=== PATIENT | male | born 1950 | race Hispanic/Latino ===

== ENCOUNTER 2020-03-29 22:09 | Observation (INO) | payer OTHER ==
--- NOTE | 2020-03-29 22:48 | Emergency Department Report ---
HPI - General Chief Complaint: Altered Mental Status Time Seen by Provider: 03/29/20 22:45 - HPI HPI: This is a 69-year-old male who presents to the emergency department via EMS for altered mental status. Apparently the patient was found wandering around somewhere that concerned someone and PD was notified. They found this patient altered and called for EMS for transfer to the emergency department. The patient is currently AAO x2 to person and place but not time. The patient is unknown to myself and has never been to this emergency department previously. He presents slightly disheveled. He says that he lives alone and does not have any significant other or family. Patient presents incontinent of urine. Patient does admit to a history of hypertension and previous CVA but denies any residual deficits. At this time the patient denies any chest pain, fever, shortness of breath, nausea, vomiting or diaphoresis. ED Past Medical Hx - Past Medical History Previous Medical History?: Yes Hx CVA: Yes - Social History Smoking Status: Never Smoker Substance Use Type: None ED Review of Systems ROS: Stated complaint: ALTERED MENTAL STATUS Other details as noted in HPI Comment: Unobtainable due to pts medical conditions Physical Exam - Physical Exam Physical Exam: GENERAL: The patient is well-developed well-nourished. HENT: Normocephalic. Atraumatic. Patient has moist mucous membranes. EYES: Extraocular motions are intact. NECK: Supple. Trachea is midline. Full range of motion. CHEST/LUNGS: Clear to auscultation. There is no respiratory distress noted. HEART/CARDIOVASCULAR: Regular. There is no tachycardia. ABDOMEN: Abdomen is soft, nontender. Patient has normal bowel sounds. SKIN: Skin is warm and dry. NEURO: The patient is awake, alert but confused. AAO x2 to person and place but not time. Cranial nerves II through XII grossly intact. MUSCULOSKELETAL: There is no tenderness or deformity. There is no limitation range of motion. BACK: No midline thoracic or lumbar tenderness to palpation. ED Course - Reevaluation(s) Reevaluation #1: 03/30/20 03:09 Lab Results 03/29/20 03/29/20 03/29/20 Range/Units 23:19 23:19 23:19 WBC 14.7 H (4.5-11.0) K/mm3 RBC 5.01 (3.65-5.03) M/mm3 Hgb 14.9 (11.8-15.2) gm/dl Hct 44.9 (35.5-45.6) % MCV 90 (84-94) fl MCH 30 (28-32) pg MCHC 33 (32-34) % RDW 14.8 (13.2-15.2) % Plt Count 368 (140-440) K/mm3 Lymph % (Auto) 10.4 L (13.4-35.0) % [place] % (Auto) 5.6 (0.0-7.3) % Eos % (Auto) 0.5 (0.0-4.3) % Baso % (Auto) 0.6 (0.0-1.8) % Lymph # (Auto) 1.5 (1.2-5.4) K/mm3 [place] # (Auto) 0.8 (0.0-0.8) K/mm3 Eos # (Auto) 0.1 (0.0-0.4) K/mm3 Baso # (Auto) 0.1 (0.0-0.1) K/mm3 Seg Neutrophils % 82.9 H (40.0-70.0) % Seg Neutrophils # 12.2 H (1.8-7.7) K/mm3 Sodium 138 (137-145) mmol/L Potassium 3.9 (3.6-5.0) mmol/L Chloride 100.1 (98-107) mmol/L Carbon Dioxide 21 L (22-30) mmol/L Anion Gap 21 mmol/L BUN 24 H (9-20) mg/dL Creatinine 1.0 (0.8-1.3) mg/dL Estimated GFR > 60 ml/min BUN/Creatinine Ratio 24 % Glucose 85 (75-100) mg/dL Calcium 9.3 (8.4-10.2) mg/dL Total Bilirubin 0.90 (0.1-1.2) mg/dL AST 22 (5-40) units/L ALT 11 (7-56) units/L Alkaline Phosphatase 125 (35-129) units/L Ammonia (25-60) umol/L Troponin T < 0.010 (0.00-0.029) ng/mL Total Protein 7.7 (6.3-8.2) g/dL Albumin 3.9 (3.9-5) g/dL Albumin/Globulin Ratio 1.0 % TSH (0.270-4.200) mlU/mL Urine Color (Yellow) Urine Turbidity (Clear) Urine pH (5.0-7.0) Ur Specific [place] (1.003-1.030) Urine Protein (Negative) mg/dL Urine Glucose (UA) (Negative) mg/dL Urine Ketones (Negative) mg/dL Urine Blood (Negative) Urine Nitrite (Negative) Urine Bilirubin (Negative) Urine Urobilinogen (<2.0) mg/dL Ur Leukocyte Esterase (Negative) Urine WBC (Auto) (0.0-6.0) /HPF Urine RBC (Auto) (0.0-6.0) /HPF U Epithel Cells (Auto) (0-13.0) /HPF Urine Bacteria (Auto) (Negative) /HPF Urine WBC Clumps /HPF Urine Mucus /HPF Urine Opiates Screen Urine Methadone Screen Ur Barbiturates Screen Ur Phencyclidine Scrn Ur Amphetamines Screen U Benzodiazepines Scrn Urine Cocaine Screen U Marijuana (THC) Screen Drugs of Abuse Note Plasma/Serum Alcohol < 0.01 (0-0.07) % 03/29/20 03/29/20 03/29/20 Range/Units 23:19 23:19 23:46 WBC (4.5-11.0) K/mm3 RBC (3.65-5.03) M/mm3 Hgb (11.8-15.2) gm/dl Hct (35.5-45.6) % MCV (84-94) fl MCH (28-32) pg MCHC (32-34) % RDW (13.2-15.2) % Plt Count (140-440) K/mm3 Lymph % (Auto) (13.4-35.0) % [place] % (Auto) (0.0-7.3) % Eos % (Auto) (0.0-4.3) % Baso % (Auto) (0.0-1.8) % Lymph # (Auto) (1.2-5.4) K/mm3 [place] # (Auto) (0.0-0.8) K/mm3 Eos # (Auto) (0.0-0.4) K/mm3 Baso # (Auto) (0.0-0.1) K/mm3 Seg Neutrophils % (40.0-70.0) % Seg Neutrophils # (1.8-7.7) K/mm3 Sodium (137-145) mmol/L Potassium (3.6-5.0) mmol/L Chloride (98-107) mmol/L Carbon Dioxide (22-30) mmol/L Anion Gap mmol/L BUN (9-20) mg/dL Creatinine (0.8-1.3) mg/dL Estimated GFR ml/min BUN/Creatinine Ratio % Glucose (75-100) mg/dL Calcium (8.4-10.2) mg/dL Total Bilirubin (0.1-1.2) mg/dL AST (5-40) units/L ALT (7-56) units/L Alkaline Phosphatase (35-129) units/L Ammonia 37.0 (25-60) umol/L Troponin T (0.00-0.029) ng/mL Total Protein (6.3-8.2) g/dL Albumin (3.9-5) g/dL Albumin/Globulin Ratio % TSH 1.230 (0.270-4.200) mlU/mL Urine Color Yellow (Yellow) Urine Turbidity Clear (Clear) Urine pH 5.0 (5.0-7.0) Ur Specific [place] 1.021 (1.003-1.030) Urine Protein <15 mg/dl (Negative) mg/dL Urine Glucose (UA) Neg (Negative) mg/dL Urine Ketones 20 (Negative) mg/dL Urine Blood Lg (Negative) Urine Nitrite Pos (Negative) Urine Bilirubin Neg (Negative) Urine Urobilinogen 2.0 (<2.0) mg/dL Ur Leukocyte Esterase Mod (Negative) Urine WBC (Auto) 24.0 H (0.0-6.0) /HPF Urine RBC (Auto) 1.0 (0.0-6.0) /HPF U Epithel Cells (Auto) < 1.0 (0-13.0) /HPF Urine Bacteria (Auto) 2+ (Negative) /HPF Urine WBC Clumps 2+ /HPF Urine Mucus 2+ /HPF Urine Opiates Screen Urine Methadone Screen Ur Barbiturates Screen Ur Phencyclidine Scrn Ur Amphetamines Screen U Benzodiazepines Scrn Urine Cocaine Screen U Marijuana (THC) Screen Drugs of Abuse Note Plasma/Serum Alcohol (0-0.07) % 12/06/20 Range/Units 23:46 WBC (4.5-11.0) K/mm3 RBC (3.65-5.03) M/mm3 Hgb (11.8-15.2) gm/dl Hct (35.5-45.6) % MCV (84-94) fl MCH (28-32) pg MCHC (32-34) % RDW (13.2-15.2) % Plt Count (140-440) K/mm3 Lymph % (Auto) (13.4-35.0) % [place] % (Auto) (0.0-7.3) % Eos % (Auto) (0.0-4.3) % Baso % (Auto) (0.0-1.8) % Lymph # (Auto) (1.2-5.4) K/mm3 [place] # (Auto) (0.0-0.8) K/mm3 Eos # (Auto) (0.0-0.4) K/mm3 Baso # (Auto) (0.0-0.1) K/mm3 Seg Neutrophils % (40.0-70.0) % Seg Neutrophils # (1.8-7.7) K/mm3 Sodium (137-145) mmol/L Potassium (3.6-5.0) mmol/L Chloride (98-107) mmol/L Carbon Dioxide (22-30) mmol/L Anion Gap mmol/L BUN (9-20) mg/dL Creatinine (0.8-1.3) mg/dL Estimated GFR ml/min BUN/Creatinine Ratio % Glucose (75-100) mg/dL Calcium (8.4-10.2) mg/dL Total Bilirubin (0.1-1.2) mg/dL AST (5-40) units/L ALT (7-56) units/L Alkaline Phosphatase (35-129) units/L Ammonia (25-60) umol/L Troponin T (0.00-0.029) ng/mL Total Protein (6.3-8.2) g/dL Albumin (3.9-5) g/dL Albumin/Globulin Ratio % TSH (0.270-4.200) mlU/mL Urine Color (Yellow) Urine Turbidity (Clear) Urine pH (5.0-7.0) Ur Specific [place] (1.003-1.030) Urine Protein (Negative) mg/dL Urine Glucose (UA) (Negative) mg/dL Urine Ketones (Negative) mg/dL Urine Blood (Negative) Urine Nitrite (Negative) Urine Bilirubin (Negative) Urine Urobilinogen (<2.0) mg/dL Ur Leukocyte Esterase (Negative) Urine WBC (Auto) (0.0-6.0) /HPF Urine RBC (Auto) (0.0-6.0) /HPF U Epithel Cells (Auto) (0-13.0) /HPF Urine Bacteria (Auto) (Negative) /HPF Urine WBC Clumps /HPF Urine Mucus /HPF Urine Opiates Screen Presumptive negative Urine Methadone Screen Presumptive negative Ur Barbiturates Screen Presumptive negative Ur Phencyclidine Scrn Presumptive negative Ur Amphetamines Screen Presumptive positive U Benzodiazepines Scrn Presumptive negative Urine Cocaine Screen Presumptive negative U Marijuana (THC) Screen Presumptive negative Drugs of Abuse Note Disclamer Plasma/Serum Alcohol (0-0.07) % ED Medical Decision Making - Lab Data Result diagrams: 03/29/20 23:19 03/29/20 23:19 - EKG Data -: EKG Interpreted by Me EKG shows normal: sinus rhythm, axis, intervals (Prolonged VT interval), QRS complexes (LVH), ST-T waves Rate: normal - EKG Data When compared to previous EKG there are: previous EKG unavailable Interpretation: other (Sinus rhythm, normal axis, prolonged VT interval, LVH. No ST elevation myocardial infarction.) - Radiology Data Radiology results: report reviewed, image reviewed interpreted by me: Chest x-ray does not show any acute process. There are no pleural effusions, obvious pneumonia and there is no pneumothorax. No significant cardiomegaly. CT head/brain wo con INDICATION: Altered mental status. TECHNIQUE: Routine CT head without contrast. All CT scans at this location are performed using CT dose reduction for ALARA by means of automated exposure control. COMPARISON: None. FINDINGS: BRAIN / INTRACRANIAL CONTENTS: No acute hemorrhage, mass effect, midline shift, or hydrocephalus. No appreciable acute large territorial or lacunar infarct. Several chronic lacunar infarcts noted in the basal ganglia and steel radiata. Age-commensurate ventricular and cisternal/sulcal prominence. ORBITS: No significant abnormality of visualized orbits. SINUSES / MASTOIDS: No significant abnormality of visualized sinuses and mastoid air cells. ADDITIONAL FINDINGS: None. IMPRESSION: 1. No acute intracranial abnormality on noncontrast CT of the brain. Chronic changes as above. - Medical Decision Making This patient presents to the emergency department with altered mental status after he was found either wandering or loitering somewhere this evening. He was initially seen by PD and brought in by EMS. Patient is AAO x2 to person and place but not time. He has a disheveled appearance. Cranial nerves are intact. He appears to have full range of motion of all of his extremities. I did not see any particular focal or lateralizing deficits on examination. CT scan of the head without contrast does not show any bleed, shift, mass, ischemia, or any other acute process. There are some remote infarct seen. Chest x-ray does not show any pneumonia, pleural effusions, pneumothorax, or any other acute process. It was read by radiology as showing age-indeterminate left-sided lower rib fractures. However the patient does not have any tenderness to palpation in this area and denies any recent fall or trauma. There are no areas of ecchymosis, crepitus. Patient's labs shows a leukocytosis of 14,000, mild urinary tract infection, and urine drug screen positive for amphetamines. Patient will be admitted to the hospital for further evaluation and treatment was accepted for admission by the hospitalist, Dr. Oliver. Critical Care Time: No Critical care attestation.: If time is entered above; I have spent that time in minutes in the direct care of this critically ill patient, excluding procedure time. ED Disposition Clinical Impression: Encephalopathy acute UTI (urinary tract infection) Qualifiers: Urinary tract infection type: acute cystitis Hematuria presence: without hematuria Qualified Code(s): N30.00 - Acute cystitis without hematuria Hypertension Qualifiers: Hypertension type: essential hypertension Qualified Code(s): I10 - Essential (primary) hypertension Disposition: OP ADMIT IP TO THIS HOSP Is pt being admited?: Yes Condition: Serious Time of Disposition: 01:30
--- NOTE | 2020-03-29 23:05 | XRay Report ---
CHEST 1 VIEW INDICATION / CLINICAL INFORMATION: Altered mental status. COMPARISON: None available. FINDINGS: SUPPORT DEVICES: None. HEART / MEDIASTINUM: No significant abnormality. LUNGS / PLEURA: No significant pulmonary or pleural abnormality. No pneumothorax. ADDITIONAL FINDINGS: Several age indeterminate left lateral lower rib fractures. IMPRESSION: 1. Several age-indeterminate left lateral lower rib fractures, correlate for history of trauma. 2. Otherwise no acute abnormality identified. Signer Name: Verito Arreola MD Signed: 03/29/2020 11:00 PM Workstation Name: [id number]
--- NOTE | 2020-03-29 23:27 | Cat Scan Report ---
CT head/brain wo con INDICATION: Altered mental status. TECHNIQUE: Routine CT head without contrast. All CT scans at this location are performed using CT dos e reduction for ALARA by means of automated exposure control. COMPARISON: None. FINDINGS: BRAIN / INTRACRANIAL CONTENTS: No acute hemorrhage, mass effect, midline shift, or hydrocephalus. No appreciable acute large territorial or lacunar infarct. Several chronic lacunar infarcts noted in the basal ganglia and steel radiata. Age-commensurate ventricular and cisternal/sulcal prominence. ORBITS: No significant abnormality of visualized orbits. SINUSES / MASTOIDS: No significant abnormality of visualized sinuses and mastoid air cells. ADDITIONAL FINDINGS: None. IMPRESSION: 1. No acute intracranial abnormality on noncontrast CT of the brain. Chronic changes as above. Signer Name: Verito Arreola MD Signed: 03/29/2020 11:23 PM Workstation Name: [id number]
[2020-03-29 23:52] LABS: Basophils # (Auto) 0.1 K/mm3 (0.0-0.1); Basophils % (Auto) 0.6 % (0.0-1.8); Eosinophils # (Auto) 0.1 K/mm3 (0.0-0.4); Eosinophils % (Auto) 0.5 % (0.0-4.3); Hematocrit 44.9 % (35.5-45.6); Hemoglobin 14.9 gm/dl (11.8-15.2); Lymphocytes # (Auto) 1.5 K/mm3 (1.2-5.4); Lymphocytes % (Auto) 10.4 % (13.4-35.0); Mean Corpuscular HGB Conc 33 % (32-34); Mean Corpuscular Volume 90 fl (84-94); Monocytes # (Auto) 0.8 K/mm3 (0.0-0.8); Monocytes % (Auto) 5.6 % (0.0-7.3); Platelet Count 368 K/mm3 (140-440); Red Blood Count 5.01 M/mm3 (3.65-5.03); Red Cell Distribution Width 14.8 % (13.2-15.2)
[2020-03-30 00:42] LABS: Alanine Aminotransferase 11 units/L (7-56); Albumin 3.9 g/dL (3.9-5); BUN/Creatinine Ratio 24; Blood Urea Nitrogen 24 mg/dL (9-20); Calcium 9.3 mg/dL (8.4-10.2); Hemolysis Index 95
[2020-03-30 01:19] LABS: Bacteria,Urine 2+ /HPF (Negative); Bilirubin,Urine NEG (Negative); Blood,Urine LG (Negative); Color,Urine Yellow (Yellow); Mucus,Urine 2+ /HPF; Protein,Urine <15 mg/dL mg/dL (Negative)
[2020-03-30] MEDS ORDERED: cefTRIAXone/NS 1 GM/50 ML 1 GM/50 ML BAG IV ONE ×2 (01:25→03:16)
[2020-03-30 01:27] LABS: Amphetamine Screen,Urine PRESUMPTIVE POSITIVE; Benzodiazepines Screen,Urine PRESUMPTIVE NEGATIVE; Cannabinoid Screen,Urine PRESUMPTIVE NEGATIVE; Cocaine Screen,Urine PRESUMPTIVE NEGATIVE; Methadone Screen,Urine PRESUMPTIVE NEGATIVE; Opiate Screen,Urine PRESUMPTIVE NEGATIVE
[2020-03-30] MEDS ORDERED: ACETAMINOPHEN 325 MG TAB PO PRN (01:43)
[2020-03-30] MEDS ORDERED: ONDANSETRON 4 MG/2 ML INJ IV PRN (01:43)
[2020-03-30] MEDS ORDERED: SENNOSIDES 8.6 MG TAB PO PRN (01:43)
[2020-03-30] MEDS ORDERED: ZOLPIDEM 5 MG TAB PO PRN (01:43)
[2020-03-30] MEDS ORDERED: ALUM-MAG HYDROXIDE-SIMETHICONE 200-200-20MG/5ML ORAL LIQD 30 ML PO PRN (01:43)
[2020-03-30] MEDS ORDERED: METOCLOPRAMIDE 10 MG/2 ML INJ IV PRN (01:43)
[2020-03-30] MEDS ORDERED: SODIUM CHLORIDE 0.9% 1000 ML 1,000 ML IV SCH (01:45)
--- NOTE | 2020-03-30 01:56 | History and Physical Report ---
History of Present Illness Date of examination: 03/30/20 Date of admission: 03/30/20 Chief complaint: Altered mental Status UTI History of present illness: This is a 69-year-old male seen at bedside in Ed. Patient on room air, oxygen saturation 99%. He is confused and restless with agitation. He presents to the emergency department via EMS for altered mental status. Per ED record- patient was found wandering around somewhere that concerned someone and PD was notified. They found this patient altered and called for EMS for transfer to the emergency department. The patient is alert and oriented times 2. He says that he lives alone and does not have any significant other or family. Patient appears unkept and incontinent of urine. Patient has past medical history hypertension and CVA with no residual deficits. Patient denies chest pain, fever, shortness of breath, nausea, and vomiting. ED work up shows WBC 14.7, hemoglobin 14.9, sodium 138, urinalysis positive 24 Ct of the head -negative for acute finding Chest x-ray-no acute finding Past History Past Medical History: hypertension, stroke Past Surgical History: No surgical history Social history: no significant social history Family history: no significant family history Medications and Allergies Allergies Allergy/AdvReac Type Severity Reaction Status Date / Time Unable to Assess Allergy Unverified 03/29/20 22:39 Active Meds: Active Medications Acetaminophen (Tylenol) 650 mg PO Q4H PRN PRN Reason: Pain MILD(1-3)/Fever >100.5/BOWER Al Hydrox/Mg Hydrox/Simethicone (Alum-Mag Hydrox-Simeth [id number]) 30 ml PO Q4H PRN PRN Reason: Indigestion Famotidine (Pepcid) 20 mg PO DAILY LANDON Ceftriaxone Sodium (Rocephin/Ns 1 Gm/50 Ml) 1 gm in 50 mls @ 100 mls/hr IV ONCE ONE; Protocol Stop: 03/30/20 01:54 Sodium Chloride (Nacl 0.9% 1000 Ml) 1,000 mls @ 75 mls/hr IV DIRECT LANDON Metoclopramide HCl (Reglan) 10 mg IV Q6H PRN PRN Reason: Nausea And Vomiting Ondansetron HCl (Zofran) 4 mg IV Q8H PRN PRN Reason: Nausea And Vomiting Senna (Senokot) 8.6 mg PO Q12HR PRN PRN Reason: Constipation Sodium Chloride (Sodium Chloride Flush Syringe 10 Ml) 10 ml IV BID LANDON Sodium Chloride (Sodium Chloride Flush Syringe 10 Ml) 10 ml IV PRN PRN PRN Reason: LINE FLUSH Zolpidem Tartrate (Ambien) 5 mg PO QHS PRN PRN Reason: Insomnia Review of Systems Constitutional: weakness Ears, nose, mouth and throat: no ear discharge, no epistaxis Cardiovascular: no orthopnea, no shortness of breath Respiratory: no shortness of breath Gastrointestinal: no hematemesis Genitourinary Male: urinary frequency, urinary hesitancy, incontinence Musculoskeletal: no fractures Integumentary: no rash, no redness Neurological: confusion Psychiatric: anxiety, confusion Endocrine: no thyroid mass Exam - Constitutional Vitals: Temp Pulse Resp BP Pulse Ox 98.5 F 87 22 176/97 98 03/29/20 23:11 03/29/20 23:11 03/29/20 23:11 03/29/20 23:11 03/29/20 23:11 General appearance: Present: no acute distress - EENT Eyes: Present: PERRL ENT: hearing intact, clear oral mucosa - Neck Neck: Present: supple, normal ROM - Respiratory Respiratory effort: normal Respiratory: bilateral: CTA - Cardiovascular Heart rate: 87 Heart Sounds: Present: S1 & S2. Absent: rub, click - Extremities Extremities: pulses symmetrical, No edema Peripheral Pulses: within normal limits - Abdominal General gastrointestinal: Present: soft, non-tender, non-distended, normal bowel sounds Male genitourinary: Present: normal - Integumentary Integumentary: Present: clear, warm, dry - Musculoskeletal Musculoskeletal: gait normal, strength equal bilaterally - Psychiatric Psychiatric: other (Altered mental status) - Neurologic Neurologic: CNII-XII intact, moves all extremities - Allied Health Allied health notes reviewed: nursing HEART Score - HEART Score Troponin: Troponin T < 0.010 ng/mL (0.00-0.029) 03/29/20 23:19 Results - Labs CBC & Chem 7: 03/29/20 23:19 03/29/20 23:19 Labs: Abnormal lab results 03/29/20 03/29/20 03/29/20 Range/Units 23:19 23:19 23:46 WBC 14.7 H (4.5-11.0) K/mm3 Lymph % (Auto) 10.4 L (13.4-35.0) % Seg Neutrophils % 82.9 H (40.0-70.0) % Seg Neutrophils # 12.2 H (1.8-7.7) K/mm3 Carbon Dioxide 21 L (22-30) mmol/L BUN 24 H (9-20) mg/dL Urine WBC (Auto) 24.0 H (0.0-6.0) /HPF Assessment and Plan - Patient Problems (1) Encephalopathy acute Current Visit: Yes Status: Acute Plan to address problem: Most likely 2/2 to UTI Continue empiric antibiotic-iv Rocephin Monitor mental status Safety and fall precaution at all time CT of the head-negative for acute finding (2) UTI (urinary tract infection) Current Visit: Yes Status: Acute Qualifiers: Urinary tract infection type: acute cystitis Hematuria presence: without hematuria Qualified Code(s): N30.00 - Acute cystitis without hematuria Plan to address problem: Continue antibiotics Urine and blood culture-f/u with result (3) Hypertension Current Visit: Yes Status: Acute Qualifiers: Hypertension type: essential hypertension Qualified Code(s): I10 - Essential (primary) hypertension Plan to address problem: Monitor blood pressure Will resume home bp med+ Adjust bp med if needed Chest x-ray -negative for acute finding (4) Leucocytosis Current Visit: Yes Status: Acute Plan to address problem: likely 2/2 to UTI monitor WBC Blood culture and urine culture (5) DVT prophylaxis Current Visit: Yes Status: Acute Plan to address problem: SQ lovenox
[2020-03-30] MEDS ORDERED: hydrALAZINE 20 MG/1 ML INJ IV PRN (02:05)
[2020-03-30] MEDS ORDERED: QUEtiapine 25 MG TAB PO ONE (02:14)
[2020-03-30] MEDS ORDERED: traMADol 50 MG TAB PO PRN (02:14)
[2020-03-30 06:55] LABS: Chol/HDL Ratio 4.8 %
[2020-03-30] MEDS: FAMOTIDINE 20 MG TAB PO SCH (09:49)
[2020-03-30] MEDS: ENOXAPARIN 40 MG/0.4 ML INJ SUB-Q SCH (09:49)
[2020-03-30] MEDS: amLODIPine 5 MG TAB PO SCH (09:50)
[2020-03-30] MEDS: D5W/0.9% NACL 1,000 ML IV SCH ×2 (11:24→23:46)
--- NOTE | 2020-03-30 16:24 | Progress Note ---
Assessment and Plan - Patient Problems (1) UTI (urinary tract infection) Current Visit: Yes Status: Acute Qualifiers: Urinary tract infection type: acute cystitis Hematuria presence: without hematuria Qualified Code(s): N30.00 - Acute cystitis without hematuria Plan to address problem: 03/29 urine analysis shows leukocyte esterase and nitrate IV Rocephin Supportive care Trend CBC (2) Encephalopathy acute Current Visit: Yes Status: Acute Plan to address problem: Presented with confusion Supportive care Likely secondary to UTI Aspiration/fall precautions 03/29 CT of the head negative for acute finding (3) Leucocytosis Current Visit: Yes Status: Acute Plan to address problem: Presented with WBC of 14.7 Trend CBC Antibiotic therapy (4) Hypertension Current Visit: Yes Status: Chronic Qualifiers: Hypertension type: essential hypertension Qualified Code(s): I10 - Essential (primary) hypertension Plan to address problem: Resume home antihypertensive regimen As needed hydralazine for SBP greater than 160 Pressure monitoring per protocol (5) DVT prophylaxis Current Visit: Yes Status: Acute Plan to address problem: SCDs to bilateral from swelling by Lovenox subcu GI prophylaxis History Interval history: This is a 69-year-old male with hypertension and stroke who presents the emergency department on 03/29 via EMS for altered mental status. Per ED records patient was found wandering and PD was notified who found the patient was altered and called EMS for transfer to the ED. To the ED he is uncapped and incontinent of urine head CT and CXR was negative for any acute changes. In the emergency department she was found to have leukocytosis of 14.7, urinalysis was positive for leukocyte Estrace, pyuria and nitrates. Patient was admitted to the hospital service with a urinary tract infection and acute metabolic encephalopathy. This morning on examination patient does not open his eyes to verbal stimuli but is responsive to painful stimuli. He was hypoglycemic today therefore he was started on D5 normal saline. Hospitalist Physical - Constitutional Vitals: Temp Pulse Resp BP Pulse Ox 98.9 F 81 16 134/69 93 03/30/20 12:03 03/30/20 12:03 03/30/20 12:03 03/30/20 12:03 03/30/20 12:03 General appearance: Present: no acute distress - EENT Eyes: Present: PERRL, EOM intact ENT: poor dentition - Neck Neck: Present: normal ROM - Respiratory Respiratory effort: normal Respiratory: bilateral: CTA - Cardiovascular Rhythm: regular Heart Sounds: Present: S1 & S2. Absent: systolic murmur, diastolic murmur - Extremities Extremities: no ischemia, pulses intact, pulses symmetrical, No edema, normal temperature, normal color, Full ROM Peripheral Pulses: within normal limits - Abdominal General gastrointestinal: soft, non-tender, non-distended, normal bowel sounds - Integumentary Integumentary: Present: warm, dry - Psychiatric Psychiatric: other (Noninteractive) - Neurologic Neurologic: CNII-XII intact, no focal deficits, moves all extremities HEART Score - HEART Score Troponin: Troponin T < 0.010 ng/mL (0.00-0.029) 03/29/20 23:19 Results - Labs CBC & Chem 7: 03/29/20 23:19 03/29/20 23:19 Labs: Laboratory Last Values WBC 14.7 K/mm3 (4.5-11.0) H 03/29/20 23:19 RBC 5.01 M/mm3 (3.65-5.03) 03/29/20 23:19 Hgb 14.9 gm/dl (11.8-15.2) 03/29/20 23:19 Hct 44.9 % (35.5-45.6) 03/29/20 23:19 MCV 90 fl (84-94) 03/29/20 23:19 MCH 30 pg (28-32) 03/29/20 23:19 MCHC 33 % (32-34) 03/29/20 23:19 RDW 14.8 % (13.2-15.2) 03/29/20 23:19 Plt Count 368 K/mm3 (140-440) 03/29/20 23:19 Lymph % (Auto) 10.4 % (13.4-35.0) L 03/29/20 23:19 [place] % (Auto) 5.6 % (0.0-7.3) 03/29/20 23:19 Eos % (Auto) 0.5 % (0.0-4.3) 03/29/20 23:19 Baso % (Auto) 0.6 % (0.0-1.8) 03/29/20 23:19 Lymph # (Auto) 1.5 K/mm3 (1.2-5.4) 03/29/20 23:19 [place] # (Auto) 0.8 K/mm3 (0.0-0.8) 03/29/20 23:19 Eos # (Auto) 0.1 K/mm3 (0.0-0.4) 03/29/20 23:19 Baso # (Auto) 0.1 K/mm3 (0.0-0.1) 03/29/20 23:19 Seg Neutrophils % 82.9 % (40.0-70.0) H 03/29/20 23:19 Seg Neutrophils # 12.2 K/mm3 (1.8-7.7) H 03/29/20 23:19 Sodium 138 mmol/L (137-145) 03/29/20 23:19 Potassium 3.9 mmol/L (3.6-5.0) 03/29/20 23:19 Chloride 100.1 mmol/L (98-107) 03/29/20 23:19 Carbon Dioxide 21 mmol/L (22-30) L 03/29/20 23:19 Anion Gap 21 mmol/L 03/29/20 23:19 BUN 24 mg/dL (9-20) H 03/29/20 23:19 Creatinine 1.0 mg/dL (0.8-1.3) 03/29/20 23:19 Estimated GFR > 60 ml/min 03/29/20 23:19 BUN/Creatinine Ratio 24 % 03/29/20 23:19 Glucose 85 mg/dL (75-100) 03/29/20 23:19 POC Glucose 80 mg/dL (70-105) 03/30/20 12:01 Hemoglobin A1c 5.7 % (4-6) 03/30/20 01:47 Calcium 9.3 mg/dL (8.4-10.2) 03/29/20 23:19 Total Bilirubin 0.90 mg/dL (0.1-1.2) 03/29/20 23:19 AST 22 units/L (5-40) 03/29/20 23:19 ALT 11 units/L (7-56) 03/29/20 23:19 Alkaline Phosphatase 125 units/L (35-129) 03/29/20 23:19 Ammonia 37.0 umol/L (25-60) 03/29/20 23:19 Troponin T < 0.010 ng/mL (0.00-0.029) 03/29/20 23:19 Total Protein 7.7 g/dL (6.3-8.2) 03/29/20 23:19 Albumin 3.9 g/dL (3.9-5) 03/29/20 23:19 Albumin/Globulin Ratio 1.0 % 03/29/20 23:19 Triglycerides 93 mg/dL (2-149) 03/30/20 01:47 Cholesterol 202 mg/dL (50-199) H 03/30/20 01:47 LDL Cholesterol Direct 140 mg/dL (50-130) H 03/30/20 01:47 HDL Cholesterol 42 mg/dL (40-59) 03/30/20 01:47 Cholesterol/HDL Ratio 4.80 % 03/30/20 01:47 TSH 1.230 mlU/mL (0.270-4.200) 03/29/20 23:19 Urine Color Yellow (Yellow) 03/29/20 23:46 Urine Turbidity Clear (Clear) 03/29/20 23:46 Urine pH 5.0 (5.0-7.0) 03/29/20 23:46 Ur Specific [place] 1.021 (1.003-1.030) 03/29/20 23:46 Urine Protein <15 mg/dl mg/dL (Negative) 03/29/20 23:46 Urine Glucose (UA) Neg mg/dL (Negative) 03/29/20 23:46 Urine Ketones 20 mg/dL (Negative) 03/29/20 23:46 Urine Blood Lg (Negative) 03/29/20 23:46 Urine Nitrite Pos (Negative) 03/29/20 23:46 Urine Bilirubin Neg (Negative) 03/29/20 23:46 Urine Urobilinogen 2.0 mg/dL (<2.0) 03/29/20 23:46 Ur Leukocyte Esterase Mod (Negative) 03/29/20 23:46 Urine WBC (Auto) 24.0 /HPF (0.0-6.0) H 03/29/20 23:46 Urine RBC (Auto) 1.0 /HPF (0.0-6.0) 03/29/20 23:46 U Epithel Cells (Auto) < 1.0 /HPF (0-13.0) 03/29/20 23:46 Urine Bacteria (Auto) 2+ /HPF (Negative) 03/29/20 23:46 Urine WBC Clumps 2+ /HPF 03/29/20 23:46 Urine Mucus 2+ /HPF 03/29/20 23:46 Urine Opiates Screen Presumptive negative 03/29/20 23:46 Urine Methadone Screen Presumptive negative 03/29/20 23:46 Ur Barbiturates Screen Presumptive negative 03/29/20 23:46 Ur Phencyclidine Scrn Presumptive negative 03/29/20 23:46 Ur Amphetamines Screen Presumptive positive 03/29/20 23:46 U Benzodiazepines Scrn Presumptive negative 03/29/20 23:46 Urine Cocaine Screen Presumptive negative 03/29/20 23:46 U Marijuana (THC) Screen Presumptive negative 03/29/20 23:46 Drugs of Abuse Note Disclamer 03/29/20 23:46 Plasma/Serum Alcohol < 0.01 % (0-0.07) 03/29/20 23:19 Bates/IV: Voiding Method Incontinent IV Catheter Type [Right INT / Saline Lock Antecubital] Active Medications - Current Medications Current Medications: Generic Name Dose Route Start Last Admin Trade Name Freq PRN Reason Stop Dose Admin Acetaminophen 650 mg 03/30/20 01:43 Tylenol PO Q4H PRN Pain MILD(1-3)/Fever >100.5/BOWER Al Hydrox/Mg Hydrox/Simethicone 30 ml 03/30/20 01:43 Alum-Mag Hydrox-Simeth 934-057-64ru/5ml PO Q4H PRN Indigestion Amlodipine Besylate 5 mg 03/30/20 10:00 03/30/20 09:50 Amlodipine PO Not Given DAILY LANDON Enoxaparin Sodium 40 mg 03/30/20 10:00 03/30/20 09:49 Enoxaparin SUB-Q 40 mg QDAY LANDON Administration Protocol Famotidine 20 mg 03/30/20 10:00 03/30/20 09:49 Pepcid PO 20 mg DAILY LANDON Administration Hydralazine HCl 5 mg 03/30/20 02:05 Apresoline IV Q4HR PRN Hypertension Sodium Chloride 1,000 mls @ 75 mls/hr 03/30/20 01:45 03/30/20 09:50 Nacl 0.9% 1000 Ml IV 75 mls/hr DIRECT LANDON Administration Dextrose/Sodium Chloride 1,000 mls @ 75 mls/hr 03/30/20 10:00 03/30/20 11:24 D5ns IV 75 mls/hr DIRECT LANDON Administration Metoclopramide HCl 10 mg 03/30/20 01:43 Reglan IV Q6H PRN Nausea And Vomiting Ondansetron HCl 4 mg 03/30/20 01:43 Zofran IV Q8H PRN Nausea And Vomiting Senna 8.6 mg 03/30/20 01:43 Senokot PO Q12HR PRN Constipation Sodium Chloride 10 ml 03/30/20 10:00 03/30/20 09:50 Sodium Chloride Flush Syringe 10 Ml IV 10 ml BID LANDON Administration Sodium Chloride 10 ml 03/30/20 01:43 Sodium Chloride Flush Syringe 10 Ml IV PRN PRN LINE FLUSH Tramadol HCl 50 mg 03/30/20 02:14 03/30/20 02:21 Ultram PO 50 mg Q6HR PRN Administration Pain, Moderate (4-6) Zolpidem Tartrate 5 mg 03/30/20 01:43 Ambien PO QHS PRN Insomnia
[2020-03-30] MEDS ORDERED: cefTRIAXone/NS 1 GM/50 ML 1 GM/50 ML BAG IV SCH (22:00)
[2020-03-31 05:51] LABS: Basophils # (Auto) 0.1 K/mm3 (0.0-0.1); Basophils % (Auto) 0.7 % (0.0-1.8); Eosinophils # (Auto) 0.4 K/mm3 (0.0-0.4); Eosinophils % (Auto) 5.1 % (0.0-4.3); Hematocrit 39.5 % (35.5-45.6); Hemoglobin 13.2 gm/dl (11.8-15.2); Lymphocytes # (Auto) 1.7 K/mm3 (1.2-5.4); Lymphocytes % (Auto) 19.6 % (13.4-35.0); Mean Corpuscular HGB Conc 34 % (32-34); Mean Corpuscular Volume 91 fl (84-94); Monocytes # (Auto) 0.6 K/mm3 (0.0-0.8); Monocytes % (Auto) 6.9 % (0.0-7.3); Platelet Count 301 K/mm3 (140-440); Red Blood Count 4.35 M/mm3 (3.65-5.03); Red Cell Distribution Width 14.9 % (13.2-15.2)
[2020-03-31 06:19] LABS: Alanine Aminotransferase 32 units/L (7-56); Albumin 3.1 g/dL (3.9-5); BUN/Creatinine Ratio 19; Blood Urea Nitrogen 15 mg/dL (9-20); Calcium 8.3 mg/dL (8.4-10.2); Hemolysis Index 6
--- NOTE | 2020-03-31 09:12 | Discharge Summary ---
Providers - Providers Date of Admission: 03/30/20 01:30 Attending physician: EMILIO WEINER MD 03/30/20 18:22 Speech Therapy Evaluation and Treat [CONS] Routine Reason For Exam: swallow evaluation 03/31/20 09:11 Consult to Case Management [CONS] Routine Services Needed at Discharge: Matchbook Assembler Notified:: NO Additional Physician Instructions: HALFWAY Primary care physician: CLERK MANAGER Hospitalization Reason for admission: Altered mental status Condition: Serious Hospital course: This is a 69-year-old male seen at bedside in Ed. Patient on room air, oxygen saturation 99%. He is confused and restless with agitation. He presents to the emergency department via EMS for altered mental status. Per ED record- patient was found wandering around somewhere that concerned someone and PD was notified. They found this patient altered and called for EMS for transfer to the emergency department. The patient is alert and oriented times 2. He says that he lives alone and does not have any significant other or family. Patient appears unkept and incontinent of urine. Patient has past medical history hypertension and CVA with no residual deficits. Patient denies chest pain, fever, shortness of breath, nausea, and vomiting. ED work up shows WBC 14.7, hemoglobin 14.9, sodium 138, urinalysis positive 24 Ct of the head -negative for acute finding Chest x-ray-no acute finding During course of hospitalization imaging studies have remained unremarkable. Patient is awake this morning tells me he is from [place]. Could not explain why he has amphetamines in his urine I believe that this is likely the cause of his altered mental status. He is able to correctly identify who the president is and answer a few questions that informs me that his mental status is not intact. We will complete his treatment for antibiotics for UTI and we will also obtain case management to assist with placement likely to [facility]pc. Acute metabolic encephalopathy likely secondary to amphetamines Acute cystitis Leukocytosis likely reactive Systemic inflammatory response syndrome without organ dysfunction No evidence of sepsis Presumed homeless Disposition: DC- TO HOME OR SELFCARE Time spent for discharge: 35 minutes Core Measure Documentation - Palliative Care Palliative Care/ Comfort Measures: Not Applicable - Core Measures Any of the following diagnoses?: none Exam - Physical Exam Narrative exam: VITAL SIGNS: Reviewed. GENERAL: The patient appears normally appears older than stated age he otherwise developed, Vital signs as documented. HEAD: No signs of head trauma. EYES: Pupils are equal. Extraocular motions intact. EARS: Hearing grossly intact. MOUTH: Oropharynx is normal. NECK: No adenopathy, no JVD. CHEST: Chest with clear breath sounds bilaterally. No wheezes, rales, or rhonchi. CARDIAC: Regular rate and rhythm. S1 and S2, without murmurs, gallops, or rubs. VASCULAR: No Edema. Peripheral pulses normal and equal in all extremities. ABDOMEN: Soft, non tender and non distended. No rebound or guarding, and no masses palpated. Bowel Sounds normal. MUSCULOSKELETAL: Good range of motion of all major joints. Extremities without clubbing, cyanosis or edema. NEUROLOGIC EXAM: Alert and oriented x 3 No focal sensory or strength deficits. Speech normal. Follows commands. PSYCHIATRIC: Mood normal. SKIN: detail exam as documented in skin assessment - Constitutional Vitals: Temp Pulse Resp BP Pulse Ox 98.7 F 70 18 134/59 96 03/31/20 04:34 03/31/20 04:34 03/31/20 04:34 03/31/20 04:34 03/31/20 04:34 Plan Activity: advance as tolerated, fall precautions Diet: low fat Special Instructions: record daily weights, record daily BP diary, smoking cessation, other (Stop all illicit drug use) Follow up with: PRIMARY CARE, [Primary Care Provider] - 7 Days Prescriptions: AtorvaSTATin [Lipitor] 40 mg PO QHS #30 tablet amLODIPine 5 mg PO DAILY #30 tablet cephALEXin [Keflex] 500 mg PO Q12HR #10 cap Famotidine [Pepcid] 20 mg PO DAILY #30 tablet
[2020-03-31 09:39] VITALS: BP 134/79
[2020-03-31] MEDS: ENOXAPARIN 40 MG/0.4 ML INJ SUB-Q SCH (10:19)
[2020-03-31] MEDS: amLODIPine 5 MG TAB PO SCH (10:19)
[2020-03-31] MEDS: FAMOTIDINE 20 MG TAB PO SCH (10:20)
[2020-03-31] MEDS: POTASSIUM CHLORIDE 10 MEQ 10 MEQ/100 ML BAG IV SCH ×2 (10:23→11:46)
== END 2020-03-31 15:48 | disposition home or self-care (01) ==
LOC: ED 22:09 → 3A 03-30 01:30 → 4A 03-30 02:28
PROVIDERS: ADMIT Internal Medicine Geriatric Medicine; ATTEND Internal Medicine
DX: G93.41 Metabolic encephalopathy (principal); R41.82 Altered mental status, unspecified; N30.00 Acute cystitis without hematuria; I10 Essential (primary) hypertension; D72.829 Elevated white blood cell count, unspecified; R65.10 Systemic inflammatory response syndrome (SIRS) of non-infectious origin without acute organ dysfunction; Z86.73 Personal history of transient ischemic attack (TIA), and cerebral infarction without residual deficits; Z79.899 Other long term (current) drug therapy
CPT/HCPCS: 36415; 70450; 71045; 80053; 80061; 80307; 81001; 82140; 82962; 83036; 84443; 84484; 85025; 87040; 87086; 92610; 93005; 96361; 96365; 96366; 96372; 99285; A9270; G0378; J0696; J1650; J3480; J7030; J7042; 80320; G0480